=== PATIENT | female | born 1995 | race Two or more races ===

== ENCOUNTER 2023-02-13 15:26 | Emergency (ER) | payer BC ==
[~2023-02-13] VITALS: Ht 157.5 cm; Wt 65.8 kg
[2023-02-13] MEDS ORDERED: LEXAPRO5 MG PO (15:45)
[2023-02-13] MEDS ORDERED: CIPRO500 MG PO (18:38)
[2023-02-13] MEDS ORDERED: DICLOFENAC SODI75 MG PO (18:38)
== END 2023-02-13 18:44 | disposition home or self-care (01) ==
LOC: ER 15:26
DX: S01.01XA Laceration without foreign body of scalp, initial encounter (principal); S40.011A Contusion of right shoulder, initial encounter; W17.89XA Other fall from one level to another, initial encounter; Y93.89 Activity, other specified; Y92.828 Other wilderness area as the place of occurrence of the external cause; Y99.9 Unspecified external cause status